=== PATIENT | male | born 1990 | race Caucasian/White ===

== ENCOUNTER 2023-09-30 17:06 | Emergency (ER) | payer OTHER ==
[~2023-09-30] VITALS: Ht 172.7 cm; Wt 75.0 kg
[2023-09-30] MEDS: SODIUM CHLORIDE 0.9% 1,000 ML IVB ONE (18:02)
[2023-09-30] MEDS: PANTOPRAZOLE 40 MG/10 ML VIAL INJ IV ONE (18:02)
[2023-09-30] MEDS: PROCHLORPERAZINE EDISYLATE 5 MG/ML 2ML VIAL IV ONE (18:02)
[2023-09-30 18:03] VITALS: PULSE 74; RESP 19; O2SAT 97
[2023-09-30 18:10] LABS: Basophils # (auto) 0 10 ^3/uL (0-0.2); Basophils % (auto) 0.3 % (0.0-2.0); Eosinophils # (auto) 0.2 10 ^3/uL (0-0.8); Eosinophils % (auto) 2.5 % (0.0-7.0); Hematocrit 42.8 % (41.0-53.0); Hemoglobin 14.4 g/dL (13.5-17.5); Lymphocytes # (auto) 0.8 10 ^3/uL (0.4-5.4); Lymphocytes % (auto) 10.2 % (10.0-50.0); Mean Corpuscular Hemoglobin 29.9 pg (28.0-32.0); Mean Corpuscular Hgb Conc. 33.7 g/dL (32.0-36.0); Mean Corpuscular Volume 88.7 fL (80.0-100.0); Monocytes # (auto) 0.7 10 ^3/uL (0-1.3); Monocytes % (auto) 9.2 % (0.0-12.0); Neutrophils # (auto) 6.1 10 ^3/uL (1.6-8.6); Neutrophils % (auto) 77.8 % (37.0-80.0); Nucleated Red Blood Cells % 0.1 %; Red Blood Cells 4.83 10^6/uL (4.5-5.90); Red Cell Distribution Width 13.2 % (11.8-14.3); White Blood Cell 7.8 10^3/uL (4.4-10.8)
[2023-09-30 18:20] LABS: Chloride 105 mmol/L (98-107); Potassium 3.8 mmol/L (3.5-5.1); Sodium 139 mmol/L (136-145)
[2023-09-30 18:21] LABS: Anion Gap 7 (5-15); Calcium 9.1 mg/dL (8.7-10.4); Carbon Dioxide 27 mmol/L (20-30)
[2023-09-30 18:26] LABS: BUN/Creatinine Ratio 12.3 (10.0-20.0); Blood Urea Nitrogen 8 mg/dL (9-23); Glucose 93 mg/dL (74-106); Lipase 33 U/L (12-53)
[2023-09-30] MEDS ORDERED: PANT40TA2 PO (20:08)
[2023-09-30] MEDS ORDERED: ZOFR4T PO (20:08)
[2023-09-30 21:00] VITALS: BP 129/81; PULSE 90; RESP 18; TEMP 98.3; O2SAT 98
[2023-10-01] MEDS ORDERED: DIPH2.5T73 PO (08:45)
== END 2023-09-30 21:04 | disposition home or self-care (01) ==
LOC: EDBD 17:06 → ER 17:06
DX: K52.9 Noninfective gastroenteritis and colitis, unspecified (principal); I11.0 Hypertensive heart disease with heart failure; I50.9 Heart failure, unspecified; E78.5 Hyperlipidemia, unspecified; F17.210 Nicotine dependence, cigarettes, uncomplicated
CPT/HCPCS: 36415; 74176; 80048; 83690; 85025; 96361; 96374; 96375; 99285; C9113; J0780; J7030

== ENCOUNTER 2024-05-30 16:53 | Emergency (ER) | payer OTHER ==
[~2024-05-30] VITALS: Ht 175.3 cm; Wt 72.7 kg
[~2024-05-30 16:53] MED LIST: DIPH2.5T73 PO; PANT40TA2 PO; ZOFR4T PO
[2024-05-30] MEDS: SODIUM CHLORIDE 0.9% 2,100 ML IV ONE (18:54)
[2024-05-30] MEDS: PIPERACILLIN-TAZO 4.5GM 100 ML IV ONE (18:55)
[2024-05-30] MEDS: ONDANSETRON HCL 4 MG/2 ML VIAL IV ONE (18:56)
[2024-05-30] MEDS: MORPHINE SULFATE 4 MG/ML SYR/VIAL IV ONE (18:57)
[2024-05-30 19:00] LABS: Basophils # (auto) 0 10 ^3/uL (0-0.2); Basophils % (auto) 0.2 % (0.0-2.0); Eosinophils # (auto) 0.1 10 ^3/uL (0-0.8); Eosinophils % (auto) 1.1 % (0.0-7.0); Hematocrit 41.4 % (41.0-53.0); Lymphocytes # (auto) 0.3 10 ^3/uL (0.4-5.4); Lymphocytes % (auto) 3.6 % (10.0-50.0); Mean Corpuscular Hemoglobin 29.6 pg (28.0-32.0); Mean Corpuscular Hgb Conc. 33.8 g/dL (32.0-36.0); Mean Corpuscular Volume 87.6 fL (80.0-100.0); Monocytes # (auto) 0.4 10 ^3/uL (0-1.3); Monocytes % (auto) 4.8 % (0.0-12.0); Neutrophils # (auto) 7.8 10 ^3/uL (1.6-8.6); Neutrophils % (auto) 90.3 % (37.0-80.0); Nucleated Red Blood Cells % 0.1 %; Platelet Count (auto) 253 10^3/uL (140-450); Red Blood Cells 4.73 10^6/uL (4.5-5.90); Red Cell Distribution Width 13.5 % (11.8-14.3); White Blood Cell 8.6 10^3/uL (4.4-10.8)
[2024-05-30 19:17] LABS: Alanine Aminotransferase 33 U/L (7-40); Alkaline Phosphatase 74 U/L (46-116); Anion Gap 6 (5-15); Aspartate Aminotransferase 36 U/L (13-40); Blood Urea Nitrogen 15 mg/dL (9-23); Calcium 9.1 mg/dL (8.7-10.4); Carbon Dioxide 28 mmol/L (20-31); Chloride 102 mmol/L (98-107); Glucose 80 mg/dL (74-106); Lipase 29 U/L (12-53); Potassium 4.7 mmol/L (3.5-5.1); Sodium 136 mmol/L (136-145)
[2024-05-30 19:18] LABS: Albumin 4.1 g/dL (3.2-4.8); Bilirubin, Total 1.5 mg/dL (0.2-1.0); Total Protein 6.5 g/dL (5.7-8.2)
[2024-05-30 20:20] VITALS: BP 122/67; PULSE 74; RESP 18; TEMP 98; O2SAT 97
[2024-05-30] MEDS ORDERED: ZOFR4T PO (21:35)
[2024-05-30] MEDS ORDERED: BACDST PO (21:35)
[2024-05-30] MEDS ORDERED: OMEP-434 PO (21:35)
[2024-05-30] MEDS ORDERED: CEPH500C PO (21:35)
== END 2024-05-30 21:44 | disposition home or self-care (01) ==
LOC: EDBD 16:53 → ER 16:53
DX: L02.92 Furuncle, unspecified (principal); R10.10 Upper abdominal pain, unspecified; R11.10 Vomiting, unspecified; I11.0 Hypertensive heart disease with heart failure; I50.89 Other heart failure; E78.5 Hyperlipidemia, unspecified; F17.210 Nicotine dependence, cigarettes, uncomplicated
CPT/HCPCS: 36415; 74176; 80053; 83605; 83690; 84484; 85025; 96365; 96375; 99285; J2270; J2405; J2543; J7030